=== PATIENT | male | born 1950 ===

== ENCOUNTER → 2018-10-22 09:44 | Outpatient (CLI) | payer OTHER, SELFPAY ==
--- NOTE | 2018-10-22 | DI.RAD.S_ITS ---
PROCEDURE: XR CHEST 2V INDICATIONS: SHORTNESS OF BREATH TECHNIQUE: 2 views of the chest were acquired. COMPARISON: [facility], , CHEST 2 VIEW, 08/09/2009, 8:47. FINDINGS: Surgical changes and devices: Lower cervical spine fixation hardware is seen. Lungs and pleura: An incomplete inspiratory result is noted, causing a crowded appearance to the lung markings. No focal infiltrates are seen. No pneumothorax or significant pleural effusions are seen. Mediastinum: Mediastinal contours are normal. Heart size is normal. Bones and chest wall: Age-appropriate bony degenerative changes are seen. No suspicious bony abnormalities. Soft tissues appear unremarkable. IMPRESSION: No acute cardiopulmonary process is seen. Postoperative and degenerative changes are seen. Dictated by: Salomon Tarango M.D. on 10/22/2018 at 9:15 Approved by: Salomon Tarango M.D. on 10/22/2018 at 9:16
== END ==
PROVIDERS: PCP Nurse Practitioner Family; Visit Provider Nurse Practitioner Family
DX: R06.02 Shortness of breath (principal)
CPT/HCPCS: 71046